=== PATIENT | male | born 1990 | race Two or more races ===

== ENCOUNTER 2025-06-11 11:19 | Emergency (ER) | payer MEDICAID ==
[~2025-06-11] VITALS: Ht 162.6 cm; Wt 71.8 kg
[2025-06-11 11:32] VITALS: BP 109/63; PULSE 75; RESP 16; O2SAT 98
[2025-06-11] MEDS ORDERED: AMOX-117 PO (11:48)
[2025-06-11] MEDS ORDERED: IBUP-1986 PO (11:48)
[2025-06-11] MEDS ORDERED: ACET-1025 PO (11:48)
--- NOTE | 2025-06-11 11:48 | Physician Documentation ---
HPI ~ General Chief Complaint: Tooth Problem Stated Complaint: MOUTH PAIN Time Seen by MD: 11:41 History of Present Illness HPI Comment Patient is seen today with complaints of dental pain in the left lower jaw that started a few days ago but became much more swollen last night. Patient denies any fevers or chills and has no other concern or complaint at this time. Medication Reconciliation Allergies: Coded Allergies: No Known Allergies (Unverified , 06/11/25) Review of Systems Constitutional: Denies: chills, fever, weakness Eyes: Denies: pain, blurred vision ENT: Denies: ear pain, nose pain, throat pain, mouth pain Respiratory: Denies: cough, shortness of breath Cardiovascular: Denies: chest pain, palpitations Gastrointestinal: Denies: abdominal pain, nausea, vomiting Genitourinary: Denies: burning, dysuria Male Genitalia: Denies: penile discharge, testicular pain Neurological: Denies: headache, dizziness Musculoskeletal: Denies: pain, swelling Integumentary: Denies: rash, lesions Allergic/Immunologic: Denies: hives, itching Hematologic/Lymphatic: Denies: no symptoms reported Psychiatric: Denies: depression, anxiety Physical Exam Vital Signs: Temperature: 97.1, Source: Temporal, Heart Rate: 75, Respiratory Rate: 16, BP: 109/63, Pulse Oximetry: 98, Weight: 71.800 Oxygen Flow Rate: 0 Physical Exam General: Awake and Alert, no acute distress. HEENT: Patient has significant swelling of the left lower jaw. I do not appreciate any periapical abscess. Conjunctiva pink, Sclera clear, Mucus Membranes moist. Neck: Supple without masses and tenderness. Resp: Unlabored. Lungs clear to auscultation bilaterally. Heart: Regular Rate and rhythm, normal S1 and S2 without murmur, rub or gallop. Extremities: No cyanosis,clubbing or edema. Skin: Warm and Dry. Progress Results/Orders Results/Orders Vital Signs 06/11/25 11:32 Temp 97.1 Pulse 75 Resp 16 B/P (MAP) 109/63 Pulse Ox 98 O2 Flow Rate 0 Medical Decision Making Findings Patient is seen today with complaints of dental pain in the left lower jaw that started a few days ago but became much more swollen last night. Patient denies any fevers or chills and has no other concern or complaint at this time. Patient was given Augmentin 875/125 mg one tab in the ED today along with ibuprofen 800 mg and Tylenol 975 mg by mouth in the ED today. Prescriptions of the same were sent to patient's pharmacy [facility] on [address] [place]. Patient will make appointment with dentist as soon as possible. Patient will return to ED with any worsening, concerning or changing symptoms. Departure Disposition: HOME / SELF CARE / HOMELESS Impression: Primary Impression: Dental abscess Condition: Improved Discharge Instructions: Dental Abscess Additional Instructions: Patient was given Augmentin 875/125 mg one tab in the ED today along with ibuprofen 800 mg and Tylenol 975 mg by mouth in the ED today. Prescriptions of the same were sent to patient's pharmacy [facility] on [address]. Patient will make appointment with dentist as soon as possible. Patient will return to ED with any worsening, concerning or changing symptoms. Referrals: NO PRIMARY CARE PROVIDER (PCP) Prescriptions Ibuprofen (Ibuprofen) 800 Mg Tablet 1 TAB PO Q8H for pain for 10 Days, #30 TAB 0 Refills Prov: WALLACE WYATT 06/11/25 Acetaminophen (Tylenol Extra Strength) 500 Mg Tablet 2 TAB PO Q6H PRN PRN for pain or fever for 7 Days, #56 TAB Prov: WALLACE WYATT 06/11/25 Amox Tr/Potassium Clavulanate (Augmentin 875-125 Tablet) 1 Each Tablet 1 TAB PO Q12H for 10 Days, #20 TAB Prov: WALLACE WYATT 06/11/25 Signature Scribe Signature: No scribe Attestation: No scribe WALLACE WYATT Jun 11, 2025 11:48
[2025-06-11] MEDS: amox tr/potassium clavulanate 875/125mg TAB PO STA (12:12)
[2025-06-11] MEDS: ibuprofen tablet 400 MG TABLET PO STA (12:12)
[2025-06-11 12:20] VITALS: TEMP 97.1
== END 2025-06-11 12:22 | disposition home or self-care (01) ==
LOC: ER 11:19
DX: K04.7 Periapical abscess without sinus (principal)
CPT/HCPCS: 99284